=== PATIENT | female | born 1985 | race Caucasian/White ===

== ENCOUNTER 2016-06-02 23:20 | Emergency (ER) | payer OTHER ==
[~2016-06-02] VITALS: Ht 154.9 cm; Wt 81.6 kg
[~2016-06-02 23:20] MED LIST: PRENATAL VITAMI1 T10
[2016-06-02 23:42] VITALS: BP 121/66
[2016-06-03] MEDS ORDERED: NACL 0.9% 1,000 ML IV SCH (01:24)
--- NOTE | 2016-06-03 01:24 | NUR ---
PT TAKEN TO BED 7
[2016-06-03] MEDS ORDERED: ONDANSETRON 4 MG/2 ML VIAL IVP ONE (01:25)
[2016-06-03] MEDS ORDERED: FAMOTIDINE 20 MG/2 ML VIAL IVP ONE (01:25)
--- NOTE | 2016-06-03 01:26 | NUR ---
Dr. Monge evaluating patient at bedside.
--- NOTE | 2016-06-03 01:27 | NUR ---
31 Y/O HERE C/O ABD PAIN X 2 DAYS. DENIES ANY N/V OR DIARRHEA. NO S/S OF DISTRESS NOTED AT THE MOMENT. ER MD AT BEDSIDE EVALUATING PT.
[2016-06-03] MEDS ORDERED: cefTRIAXone 2,000 MG in DEXTROSE 5% 100 ML IV ONE (02:05)
[2016-06-03] MEDS ORDERED: cefTRIAXone 2,000 MG VIAL ONE (02:34)
[2016-06-03 03:44] VITALS: BP 115/62
--- NOTE | 2016-06-03 03:44 | NUR ---
Patient discharged with v/s stable. Written and verbal after care instructions given and explained. Patient alert, oriented and verbalized understanding of instructions. Ambulatory with steady gait. All questions addressed prior to discharge. ID band removed. Patient advised to follow up with PMD OR RETURN TO ER IF CONDITION WORSENS. Rx of BACTRIM AND TYLENOL WITH CODEINE NO.3 given. Patient educated on indication of medication including possible reaction and side effects. Opportunity to ask questions provided and answered.
== END 2016-06-03 03:44 | disposition home or self-care (01) ==
LOC: MED 23:20
DX: N30.90 Cystitis, unspecified without hematuria (principal); R03.0 Elevated blood-pressure reading, without diagnosis of hypertension
CPT/HCPCS: 36415; 80053; 81001; 81025; 82150; 83690; 85025; 87040; 87086; 96365; 96375; 99284; J0696; J2405; J3490; J7030; J7060

== ENCOUNTER 2016-12-28 12:55 | Emergency (ER) | payer OTHER ==
[~2016-12-28] VITALS: Ht 152.4 cm; Wt 83.9 kg
[2016-12-28 13:02] VITALS: BP 116/73
--- NOTE | 2016-12-28 13:10 | NUR ---
31/F BIBA C/O CHEST PAIN x ONE HOUR AGO. EMS STATES PT WAS AT HOME WITH NO PRECIPITATING FACTOR COMPLAINED OF CHEST PAIN AND CALLED 911. PAIN 8/10 SHARP RADIATING TO THROAT ON SCENE. EMS AT SCENE STARTED 20GA IV ON RT AC. PT WAS GIVEN 4MG ZOFRAN, 324 ASPIRIN AND 0.4 SL NITRO. PATIENT STATES PAIN 0/10 UPON ED ARRIVAL. HX: NONE MEDS: NONE; DENIES N/V/D; SKIN IS PINK/WARM/DRY; AAOX4 WITH EVEN AND STEADY GAIT; LUNGS CLEAR BL; HR EVEN AND REGULAR; PT DENIES ANY FEVER, CP, SOB, OR COUGH AT THIS TIME; PATIENT STATES PAIN OF 8/10 AT THIS TIME; VSS; PATIENT POSITIONED FOR COMFORT; HOB ELEVATED; BEDRAILS UP X2; BED DOWN. ER MD MADE AWARE OF PT STATUS.
[2016-12-28 14:02] LABS: BASOPHILS # (AUTO) 0.2 K/uL (0.00-0.22); BASOPHILS % (AUTO) 1.9 % (0.0-2.0); EOSINOPHILS # (AUTO) 0.2 K/uL (0-0.4); EOSINOPHILS % (AUTO) 1.9 % (0.0-4.0); HEMOGLOBIN 13.7 g/dL (12.0-16.0); LYMPHOCYTES % (AUTO) 21.8 % (20.5-51.1); MEAN CORPUSCULAR HEMOGLOBIN 31 pg (27-31); MEAN CORPUSCULAR HGB CONC 34 g/dL (33-37); MEAN CORPUSCULAR VOLUME 91 fL (80-94); MONOCYTES # (AUTO) 0.5 K/uL (0.8-1.0); MONOCYTES % (AUTO) 5.6 % (1.7-9.3); NEUTROPHILS # (AUTO) 6.5 K/uL (1.8-7.7); NEUTROPHILS % (AUTO) 68.8 % (42.2-75.2); PLATELET COUNT (AUTO) 308 K/uL (140-450); RED CELL DISTRIBUTION WIDTH 12.4 % (11.6-13.7); WHITE BLOOD COUNT (AUTO) 9.4 K/uL (4.8-10.8)
[2016-12-28 14:26] LABS: ANION GAP 11.5 (8-16); CARBON DIOXIDE 27.9 mmol/L (21-32); CREATININE 0.8 mg/dL (0.6-1.3); POTASSIUM 4.4 mmol/L (3.5-5.1)
[2016-12-28 14:33] LABS: ALBUMIN 3.6 g/dL (3.4-5.0); TOTAL BILIRUBIN 0.8 mg/dL (0.0-1.0)
[2016-12-28 14:47] LABS: PROTHROMBIN TIME 10.2 secs (10.8-13.4)
[2016-12-28 15:26] LABS: D-DIMER < 100 ng/ml (0-400)
--- NOTE | 2016-12-28 15:53 | NUR ---
Patient discharged with v/s stable. Written and verbal after care instructions given and explained. Patient verbalized understanding. Ambulatory with steady gait. All questions addressed prior to discharge. Advised to follow up with PMD.
[2016-12-28 15:54] VITALS: BP 107/65
== END 2016-12-28 15:53 | disposition home or self-care (01) ==
LOC: MED 12:55
DX: R07.9 Chest pain, unspecified (principal); R06.02 Shortness of breath; R61 Generalized hyperhidrosis
CPT/HCPCS: 36415; 71010; 80053; 83880; 84484; 85025; 85379; 85610; 85730; 99285; Q0092; 93005

== ENCOUNTER 2018-10-11 14:07 | Emergency (ER) | payer OTHER ==
[~2018-10-11] VITALS: Ht 152.4 cm; Wt 86.2 kg
--- NOTE | 2018-10-11 14:11 | NUR ---
PT BIBA TO BED 09.
[2018-10-11 14:12] VITALS: BP 146/81
--- NOTE | 2018-10-11 14:18 | NUR ---
PT BIBA FOR LEFT SHOULDER PAIN, SUDDEN ONSET, AFTER WAKING UP TODAY. PT DENIES TRAUMA OR INJURY. PT WAS SLEEPING ON LEFT SHOULDER WITH HER BABY SLEEPING ON HER ARM. +CMS, FULL ROM TO LEFT ARM/SHOULDER.
[2018-10-11] MEDS ORDERED: IBUPROFEN 800 MG TAB PO ONE (15:00)
[2018-10-11 15:35] VITALS: BP 140/80
== END 2018-10-11 15:35 | disposition home or self-care (01) ==
LOC: MED 14:07
DX: M25.512 Pain in left shoulder (principal)
CPT/HCPCS: 81025; 93005; 99283